=== PATIENT | female | born 1985 | race Caucasian/White ===

== ENCOUNTER 2017-11-12 11:57 | Emergency (ER) | payer MEDICAID, OTHER ==
[~2017-11-12] VITALS: Ht 162.6 cm; Wt 71.2 kg
[~2017-11-12 11:57] MED LIST: METH500T PO
[2017-11-12] MEDS ORDERED: OSEL30CA PO (18:15)
[2017-11-12] MEDS ORDERED: BACDS PO (18:15)
[2017-11-12 18:52] VITALS: BP 108/79
== END 2017-11-12 18:53 | disposition home or self-care (01) ==
LOC: ER 11:57
DX: J06.9 Acute upper respiratory infection, unspecified (principal); K08.89 Other specified disorders of teeth and supporting structures; Z88.8 Allergy status to other drugs, medicaments and biological substances
CPT/HCPCS: 99283